=== PATIENT | female | born 1980 | race Caucasian/White ===

== ENCOUNTER 2017-03-06 15:43 | Emergency (ER) | payer OTHER ==
[~2017-03-06] VITALS: Ht 160 cm; Wt 81.6 kg
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
--- NOTE | 2017-03-06 19:31 | RADIOLOGY REPORT ---
EXAMINATION: XR NASAL BONES CLINICAL INFORMATION: Nasal trauma. COMPARISON: None. TECHNIQUE: 3 views of the nasal bones were obtained. FINDINGS: Questionable nondisplaced bilateral nasal bone fractures. The nasal septum appears to be midline. IMPRESSION: Questionable nondisplaced bilateral nasal bone fractures. The nasal septum is midline.
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
[2017-03-06 20:21] VITALS: BP 116/70
[2017-03-06] MEDS ORDERED: PERCOCET 5-3251 EACH PO (20:41)
[2017-03-06] MEDS ORDERED: AMOXICILLIN500 M3 PO (20:41)
== END 2017-03-06 21:01 ==
LOC: ERH 15:43
DX: S02.2XXA Fracture of nasal bones, initial encounter for closed fracture (principal); S80.811A Abrasion, right lower leg, initial encounter; S80.812A Abrasion, left lower leg, initial encounter; S00.91XA Abrasion of unspecified part of head, initial encounter; M25.561 Pain in right knee; W10.9XXA Fall (on) (from) unspecified stairs and steps, initial encounter; Y93.01 Activity, walking, marching and hiking
CPT/HCPCS: 70160; 73560-RT; 81025